=== PATIENT | female | born 1990 | race Caucasian/White ===

== ENCOUNTER 2018-05-19 16:40 | Outpatient (REF) | payer MEDICAID, SELFPAY ==
[2018-05-21 15:38] LABS: GC Result Negative; Specimen Description URINE
[2018-05-24 09:15] LABS: Chlamydia Result Positive
== END 2018-05-19 17:00 ==
LOC: NCHCN 16:40
PROVIDERS: PCP Nurse Practitioner Family; Visit Provider Registered Nurse
DX: F41.8 Other specified anxiety disorders (principal); R35.0 Frequency of micturition; N93.0 Postcoital and contact bleeding
CPT/HCPCS: 87491; 87591

== ENCOUNTER 2018-05-28 15:16 | Outpatient (REF) | payer MEDICAID, SELFPAY ==
[2018-05-31 09:26] LABS: Hepatitis C Ab w Rflx HCV PCR Negative (NEGAT)
[2018-05-31 09:57] LABS: Hepatitis B Surface Ag Negative (NEGAT)
[2018-05-31 11:09] LABS: Hep B Core Antibody Negative (NEGAT)
[2018-05-31 11:13] LABS: HIV-1/2 Ag & Ab Screen Negative (NEGAT)
[2018-05-31 11:14] LABS: HBs Antibody, Quant <3.1 mIU/mL; Hepatitis B Surface Ab Negative
[2018-05-31 12:22] LABS: Syphilis Serology (RPR) Negative (Negative)
== END 2018-05-28 15:36 ==
LOC: NCHCN 15:16
PROVIDERS: PCP Nurse Practitioner Family; Visit Provider Registered Nurse
DX: Z11.3 Encounter for screening for infections with a predominantly sexual mode of transmission (principal); Z11.59 Encounter for screening for other viral diseases; Z11.4 Encounter for screening for human immunodeficiency virus [HIV]
CPT/HCPCS: 86704; 86706; 86803; 87340; 87389; 86592

== ENCOUNTER 2018-07-21 09:42 | Outpatient (REF) | payer MEDICAID, SELFPAY ==
[2018-07-23 13:51] LABS: Chlamydia Result Negative; GC Result Negative; Specimen Description URINE
== END 2018-07-21 10:02 ==
LOC: NCHCN 09:42
PROVIDERS: PCP Nurse Practitioner Family; Visit Provider Registered Nurse
DX: Z86.19 Personal history of other infectious and parasitic diseases (principal); Z11.3 Encounter for screening for infections with a predominantly sexual mode of transmission
CPT/HCPCS: 87491; 87591

== ENCOUNTER 2018-11-12 10:19 | Outpatient (REF) | payer MEDICAID, SELFPAY ==
[2018-11-12 20:51] LABS: HCT 43.5 % (36.0-46.0); HGB 14.8 g/dL (12.0-15.5); Mean Corpuscular Hemoglobin 31.9 pg (27.0-33.0); Mean Corpuscular Volume 93.8 fL (80-95); Mean Platelet Volume 11.3 fL (8.0-11.0); Platelet Count 154 x1000/uL (130-400); RBC 4.64 m/cumm (4.00-5.20); RBC Distribution Width 12.6 % (11.7-14.6); White Blood Cell Count 3.95 k/cumm (4.4-10.8)
[2018-11-12 20:53] LABS: ALT 23 U/L (12-78); AST 18 U/L (15-37); Albumin 4.4 g/dL (3.4-5.0); Alkaline Phosphatase 62 U/L (46-116); Anion Gap 10.1 mmol/L (3-11); BUN 14 mg/dL (7-18); Bilirubin, Total 2.1 mg/dL (0.2-1.0); CO2 28.9 mmol/L (21.0-32.0); CREATININE 0.88 mg/dL (0.55-1.02); Calcium 9.7 mg/dL (8.5-10.1); Chloride 100 mmol/L (98-107); Glucose 73 mg/dL (70-100); Magnesium 1.9 mg/dL (1.8-2.4); Potassium 4.2 mmol/L (3.5-5.1); Sodium 139 mmol/L (136-145); TSH 2.29 uIU/mL (0.358-3.74); Total Protein 8.3 g/dL (6.4-8.2); Vitamin B12 418 pg/mL (193-986)
== END 2018-11-12 10:39 ==
LOC: NCHCN 10:19
PROVIDERS: PCP Nurse Practitioner Family; Visit Provider Registered Nurse
DX: F41.8 Other specified anxiety disorders (principal)
CPT/HCPCS: 80053; 85027; 82607; 83735; 84443

== ENCOUNTER 2018-11-29 19:27 | Outpatient (REF) | payer MEDICAID, SELFPAY ==
[2018-11-29 21:08] LABS: ALT 16 U/L (12-78); AST 15 U/L (15-37); Albumin 3.9 g/dL (3.4-5.0); Alkaline Phosphatase 47 U/L (46-116); Bilirubin, Total 0.9 mg/dL (0.2-1.0); Total Protein 7.3 g/dL (6.4-8.2)
== END 2018-11-29 19:47 ==
LOC: NCHCN 19:27
PROVIDERS: PCP Nurse Practitioner Family; Visit Provider Registered Nurse
DX: E80.6 Other disorders of bilirubin metabolism (principal)
CPT/HCPCS: 80076

== ENCOUNTER 2019-03-09 18:29 | Outpatient (REF) | payer MEDICAID, SELFPAY ==
[2019-03-11 14:13] LABS: Chlamydia Result Negative; GC Result Negative; Specimen Description VAGINAL
== END 2019-03-09 18:49 ==
LOC: NCHCN 18:29
PROVIDERS: PCP Nurse Practitioner Family; Visit Provider Nurse Practitioner Family
DX: Z11.3 Encounter for screening for infections with a predominantly sexual mode of transmission (principal); Z86.19 Personal history of other infectious and parasitic diseases
CPT/HCPCS: 87491; 87591

== ENCOUNTER 2020-11-14 09:21 | Outpatient (REF) | payer MEDICAID, SELFPAY ==
[2020-11-15 14:02] LABS: Chlamydia Result Negative (Negative); GC Result Negative (Negative)
== END 2020-11-14 09:22 | disposition home or self-care (01) ==
LOC: NCHCN 09:21
PROVIDERS: PCP Nurse Practitioner Family; Visit Provider Registered Nurse
DX: Z86.19 Personal history of other infectious and parasitic diseases (principal)
CPT/HCPCS: 87491; 87591

== ENCOUNTER 2021-06-06 09:42 | Outpatient (REF) | payer MEDICAID, SELFPAY ==
--- NOTE | 2021-06-06 08:30 | PAPFT_PTH ---
PATIENT: Jeny Vela LOC: [facility]#:[id number] AGE/SX: 30/F ROOM: RE06/06/[address]: Darlene Alves : 1990 BED: DIS: 06/06/2021 SPEC #: [id number] RECD: 06/06/21 18:28 STATUS: PAUL REAngela #: [id number] JUAN: 06/06/21 08:[address]: Darlene Alves DEPT: [facility] Cytology RECD BY: Aleena Aguilar ENTERED: 06/06/21 18:28 SP TYPE: PAPFT OTHR DR: Lorrie Cuba Tissues: 1 - CX/ENDOCX FOR PAP SMEARS Procedures: PAP THIN PREP/UVM Screening Comments: [id number]
[2021-06-07 10:06] LABS: HIV-1/2 Ag & Ab Screen Negative (Negative)
[2021-06-07 16:01] LABS: Chlamydia Result Negative (Negative); GC Result Negative (Negative)
== END 2021-06-06 09:43 | disposition home or self-care (01) ==
LOC: NCHCN 09:42
PROVIDERS: PCP Nurse Practitioner Family; Visit Provider Registered Nurse
DX: Z12.4 Encounter for screening for malignant neoplasm of cervix (principal); Z11.3 Encounter for screening for infections with a predominantly sexual mode of transmission; Z11.4 Encounter for screening for human immunodeficiency virus [HIV]; Z86.19 Personal history of other infectious and parasitic diseases
CPT/HCPCS: 87389; 87491; 87591; 88142

== ENCOUNTER 2022-05-16 17:13 | Outpatient (REF) | payer MEDICAID, SELFPAY ==
--- OUTSIDE RECORDS SUMMARY | 2022-05-16 17:15 | XMS_ITS | Encounter Summary ---
:1990 Author Organization [facility] Address [address] [place] [address] Care Team Providers Name Role Phone Unavailable Primary Care Provider Unavailable Encounter Details Date Type Department Care Team Description 06/06/2021 Lab Requisition [facility] Outr Resulting Lab, Pathology & Laboratory Provider [facility] [address] [place] [address] Social History Tobacco Use Types Packs/Day Years Used Date Never Assessed Sex Assigned at Date Recorded Not on file documented as of this encounter Plan of Treatment Not on filedocumented as of this encounter Procedures Procedure Name Priority Date/Time Associated Comments Diagnosis CHLAMYDIA/N. Routine 06/06/2021 8:20 Results for this GONORRHOEAE AMPLIFIED EDT proced ure are in RNA the results section. documented in this encounter Results CHLAMYDIA/N. GONORRHOEAE AMPLIFIED RNA (06/06/2021 8:20 EDT) Pathologist Sig nature Gonococcus Result Negative Negative [facility] Chlamydia Result Negative Negative [facility] Specimen Urine - Urine, Initial Void Narrative [facility] - 06/07/2021 15:56 EDT A first catch urine specimen is acceptab le for detection of Gonorrhea and Chlamydia, but might detect up to 10% fewer infecti ons when compared with vaginal and endocervical swab samples. Performing Organization Address City/State/ZIP Code Phon e Number [facility] [address] [place] [address] SERVICES documented in this encounter Visit Diagnoses Not on filedocumented in this encounter
--- OUTSIDE RECORDS SUMMARY | 2022-05-16 17:15 | XMS_ITS | Encounter Summary ---
:1990 Author Organization [facility] Address [address] [place] [address] Care Team Providers Name Role Phone Unavailable Primary Care Provider Unavailable Encounter Details Date Type Department Care Team Description 06/06/2021 Lab Requisition [facility] Outr Resulting Lab, Pathology & Laboratory Provider [facility] [address] [place] [address] Social History Tobacco Use Types Packs/Day Years Used Date Never Assessed Sex Assigned at Date Recorded Not on file documented as of this encounter Plan of Treatment Not on filedocumented as of this encounter Procedures Procedure Name Priority Date/Time Associated Comments Diagnosis HIV 1/2 ANTIGEN AND Routine 06/06/2021 8:20 EDT R esults for this ANTIBODY, 4TH procedure are in GENERATION the results section. documented in this encounter Results HIV 1/2 ANTIGEN AND ANTIBODY, 4TH GENERATION (06/06/2021 8:20 EDT) HIV 1 and 2 Negative Negative [facility] Antibody/p24 Comment: LABORATORY Antigen, 4th If acute HIV-1 infection is suspected in a high risk ??patient, submit plasma specimen for HIV-1 RNA quantitation test. SERV ICES Generation Fourth Generation assay performed on the Siemens Skybox Imaginga ur. Specimen Blood - Venous blood (substance) Performing Organization Address City/State/ZIP Code Phon e Number [facility] [address] [place] [address] SERVICES documented in this encounter Visit Diagnoses Not on filedocumented in this encounter
--- OUTSIDE RECORDS SUMMARY | 2022-05-16 17:15 | XMS_ITS | Encounter Summary ---
:1990 Author Organization [facility] Address [address] [place] [address] Care Team Providers Name Role Phone Unavailable Primary Care Provider Unavailable Encounter Details Date Type Department Care Team Description 06/07/2021 Lab Requisition [facility] Akash Alves for other Pathology & Darlene Pina APRN general examination Laboratory Medicine - [address] [place], [place] [address] [facility] [address] [place] [address] Social History Tobacco Use Types Packs/Day Years Used Date Never Assessed Sex Assigned at Date Recorded Not on file documented as of this encounter Plan of Treatment Not on filedocumented as of this encounter Procedures Procedure Name Priority Date/Time Associated Diagnosis Comme nts PAP TEST Today 06/06/2021 8:30 EDT Encounter for other R esults for this general examination procedur e are in the results section. documented in this encounter Results PAP TEST (06/06/2021 8:30 EDT) Specimens A. Cervix and/or [facility] Endocervix , ThinPrep CENTER Imaging System with LABORATORY Manual Evaluation SERVICES Specimen Adequacy Satisfactory for [facility] Evaluation - CENTER transformation zone LABORATORY component present SERVICES General Negative for [facility] intraepithelial [place] lesion or malignancy LABORATORY SERVICES Attestation . [facility] CENTER signed by GRUPO Abdul SCT(A SCP) SERVICES on 06/10/2021 at 1242 Clinical [address] See below [facility] Performing Lab [facility] Scanned Images [facility] Specimen Pap Test - Cervix and/or Endocervix Performing Organization Address City/State/ZIP Code Phon e Number [facility] [address] [place] [address] SERVICES documented in this encounter Visit Diagnoses Diagnosis Encounter for other general examination documented in this encounter
--- OUTSIDE RECORDS SUMMARY | 2022-05-16 17:15 | XMS_ITS | Clinical Summary ---
:1990 Author Organization [facility] Address [address] [place] [address] Care Team Providers Name Role Phone Unavailable Primary Care Provider Unavailable Social History Tobacco Use Types Packs/Day Years Used Date Never Assessed Sex Assigned at Date Recorded Not on file Plan of Treatment Health Maintenance Due Date Last Done Comments Hepatitis C Screen 1990 COVID-19 Vaccine (1) 2004
--- OUTSIDE RECORDS SUMMARY | 2022-05-16 17:15 | XMS_ITS | Encounter Summary ---
:1990 Author Organization [facility] Address [address] [place] [address] Care Team Providers Name Role Phone Unavailable Primary Care Provider Unavailable Encounter Details Date Type Department Care Team Description 10/28/2012 Historical Results Only [facility] - Ida Villarreal, [facility] - [facility] [place] [address] [address] Social History Tobacco Use Types Packs/Day Years Used Date Never Assessed Sex Assigned at Date Recorded Not on file documented as of this encounter Plan of Treatment Not on filedocumented as of this encounter Procedures Procedure Name Priority Date/Time Associated Diagnosis Comme nts PAP TEST Routine 10/28/2012 Results for thi s procedure are in the resu lts section. documented in this encounter Results PAP TEST (10/28/2012) Specimen Narrative [facility] - 013 16:27 EDT Name: JENY VELA ? : [birth year] ?Age/Sex: 29/F ?Unit#: [id number] ? Loc: AGO ? Status: REG POV ?? Reg Date: 10/28/12 ? Pt.Phone Number : ? Specimen: [id number] ?STA TUS: SOUT ?Spec Date:10/28/12 ? Physician Copies: ?Carl Villarreal MD ? Tissues: ? Cervical/Endo Pap ?NONE,NONE ? CPT: 04451 ?? Units: ??1 ? CYTOLOGY DIAGNOSIS SPECIMEN ADEQUACY: ?Satisfactory for evaluation. Transformation zone component ABSENT. GENERAL CATEGORIZATION: ?Epithelial Cell Abnormality. DESCRIPTIVE DIAGNOSIS: ??Squamous cell A bnormality - ??Atypical squamous cells - undetermine d significance (ASC-US). RECOMMENDATIONS/COMMENTS: ??Recommend fo haliewing the 2006 Consensus Guidelines for the Management of ??Women with Cervical Cyto logic Abnormalities. ??Management algorithms have been distributed and are also available online at www.ASCCP.org/consensus.shtml. ?HPV DNA RESULTS ?? 10/28/12 1514 HPV DNA RESULT ??NEG ? Negative for HP V types 16, 18, 31, 33, 35, 39, 45, 51, 52, ? 56, 58, 59, 66, 68. ? Method: Cervist a HPV HR (High Risk) DNA test. ORDER QUERIES: LMP: 07/28/12- ?Preg nant? Y Post ? N ??PREVIOUS ATYPICAL: N BCP/HRT? N Rad Rx? N IUD? N ??PAP PLUS HPV? N ??REFLEX TO HR-HPV IF ASCUS ?? REFLEX TO HPV 16/18 IF HPV POS/PAP NEG ?? HPV REGARDLESS?RFLX HPV IF LSIL ?? IF ASCUS DO HPV? Y Signed ____(signature on file)____ Donna Arnett M.D. 11/03/12 By the signature above, the attending ph ysician certifies that he/she has personally conducted a gross and/or microscopic exa mination of the described specimens and rendered or confirmed the above diagnosi s. Test Performed by [facility], [address] [place] [address] Latex Spooler: Donna Navarro MD PHD Performing Organization Address City/State/ZIP Code Phon e Number [facility] [address] [place] [address] LAB documented in this encounter Visit Diagnoses Not on filedocumented in this encounter
== END 2022-05-16 17:14 | disposition home or self-care (01) ==
LOC: LBN 17:13
PROVIDERS: PCP Nurse Practitioner Family; Visit Provider Physician Assistant Medical
DX: N89.8 Other specified noninflammatory disorders of vagina (principal)
CPT/HCPCS: 87480; 87510; 87660

== ENCOUNTER 2024-01-07 15:19 | Outpatient (REF) | payer MEDICAID, SELFPAY ==
[2024-01-07 23:33] LABS: Hepatitis C Ab w Rflx HCV PCR Negative (Negative)
[2024-01-07 23:48] LABS: HIV-1/2 Ag & Ab Screen Negative (Negative)
[2024-01-08 12:06] LABS: Syphilis Serology (RPR) Negative (Negative)
[2024-01-08 15:03] LABS: Chlamydia Result Negative (Negative); GC Result Negative (Negative)
== END 2024-01-07 15:20 | disposition home or self-care (01) ==
LOC: LBN 15:19
PROVIDERS: PCP Nurse Practitioner Family; Visit Provider Physician Assistant Medical
DX: N89.8 Other specified noninflammatory disorders of vagina (principal); A64 Unspecified sexually transmitted disease
CPT/HCPCS: 86803; 87389; 87491; 87591; 86592; 87480; 87510; 87660

== ENCOUNTER 2024-02-12 20:13 | Outpatient (REF) | payer MEDICAID, SELFPAY | END 2024-02-12 20:14 | disposition home or self-care (01) | LOC: LBN 20:13 | PROVIDERS: PCP Nurse Practitioner Family; Visit Provider Physician Assistant Medical | DX: N76.0 Acute vaginitis (principal); N89.8 Other specified noninflammatory disorders of vagina | CPT/HCPCS: 87480; 87510; 87660 ==

== ENCOUNTER 2024-06-15 14:48 | Outpatient (REF) | payer MEDICAID, SELFPAY ==
--- NOTE | 2024-06-15 13:40 | PAPFT_PTH ---
PATIENT: Jeny Vlea LOC: [facility]#:[id number] AGE/SX: 33/F ROOM: RE06/15/[address]: ASIF: 1990 BED: DIS: 06/15/2024 SPEC #: [id number] RECD: 06/16/24 12:54 STATUS: PAUL GOMEZ #: [id number] JUAN: 06/15/24 13:[address]: Bhakti Jean-Baptiste DEPT: [facility] Cytology RECD BY: Aleena Aguilar ENTERED: 06/16/24 12:54 SP TYPE: PAPFT OTHR DR: Lorrie Cuba Tissues: 1 - CX/ENDOCX FOR PAP SMEARS Procedures: PAP THIN PREP/UVM Screening HPV DNA PROBE Comments: [id number] (HPV 16 & 18/45)
--- OUTSIDE RECORDS SUMMARY | 2024-06-15 14:52 | XMS_ITS | Encounter Summary ---
Author Organization [facility] Address [address] [place] [address] Care Team Providers Care Nailhead Setter Name Role Phone Samantha, [facility] Primary Care Provider [phone] Unknown, Provider MD Unavailable Unavailable Encounter Details Date Type Department Care Team (Late st Contact Info) Description 03/31/2024 Lab Requisition [facility] Pathology & Laboratory Medicine - [address] [address] [phone] Outr Resulting Lab, Provider Social History Tobacco Use Types Packs/Day Years Used Date Smoking Tobacco: Never Assessed Sex and Gender Information Value Date Recorded Sex Assigned at Not on file Gender Identity Female 06/15/2023 10:28 EST Sexual Orientation Not on file documented as of this encounter Plan of Treatment Not on file documented as of this encounter Procedures Procedure Name Priority Date/Time Associated Diagnosis Comments VAGINAL CTGC AND VAGINITIS/VAGINOSIS MOLECULAR DETECTION Routine 03/31/2024 16:29 EDT documented in this encounter Results * VAGINAL CTGC AND VAGINITIS/VAGINOSIS MOLECULAR DETECTION (03/31/2024 16:29 EDT) Stephanie glabrata Negative Negative 04/02/2024 16:49 EDT [facility] Trichomonas Vaginalis Negative Negative 04/02/2024 16:49 EDT [facility] BV (Bacterial vaginosis) Negative Negative 04/02/2024 16:49 EDT [facility] Neisseria gonorrhoeae Result Negative Negative 04/02/2024 16:49 EDT [facility] Chlamydia trachomatis Result Negative Negative 04/02/2024 16:49 EDT [facility] Stephanie Species Negative Negative 16:49 EDT [facility] Swab VAGINAL STRUCTURE / Unknown 03/31/2024 16:29 EDT 04/01/2024 22:08 EDT Provider Outr Resulting Lab MICROBIOLOGY - GENERAL ORDERABLES Performing Organization Address City/State/[facility] Co de Phone Number [facility] [address] [place] [address] documented in this encounter Visit Diagnoses Not on filedocumented in this encounter Care Teams Nailhead Setter Relationship Specialty Start Date End Date [facility] [address] [place] [address] PCP - General 06/15/23 Unknown, Provider, [address] [place] [address] 06/15/23 documented as of this encounter
--- OUTSIDE RECORDS SUMMARY | 2024-06-15 14:52 | XMS_ITS | Encounter Summary ---
Author Organization [facility] Address [address] [place] [address] Care Team Providers Care Station Mechanic Helper Name Role Phone Unknown, Provider Primary Care Provider Unava ilable Encounter Details Date Type Department Care Team (Late st Contact Info) Description 10/28/2012 Historical Results Only [facility] - [address] [place] [address] [place] [address] Carl Villarreal MD Social History Tobacco Use Types Packs/Day Years Used Date Smoking Tobacco: Never Assessed Sex and Gender Information Value Date Recorded Sex Assigned at Not on file Gender Identity Female 06/15/2023 10:28 EST Sexual Orientation Not on file documented as of this encounter Plan of Treatment Not on file documented as of this encounter Procedures Procedure Name Priority Date/Time Associated Diagnosis Comments PAP TEST Routine 10/28/2012 documented in this encounter Results * PAP TEST (10/28/2012) 10/28/2012 10/29/2012 9:3 9 EDT [facility] - 11/03/2012 16:27 EDT ----- ------- Name: JENY BARROW ? : [birth year] ?Age/Sex: 29/F ?Unit#: [id number] ? Loc: AGO ? Status: REG POV ?? Reg Date: 10/28/12 ? Pt.Phone Number: ? ----- ------- Specimen: [id number] ?STATUS: SOUT ?Spec Date:10/28/12 ? Physician Copies: ?Carl Villarreal MD ? Tissues: ? Cervical/Endo Pap ?NONE,NONE ? CPT: 80458 ?? Units: ??1 ----- ------- ? CYTOLOGY DIAGNOSIS SPECIMEN ADEQUACY: ?Satisfactory for evaluation. Transformation zone component ABSENT. GENERAL CATEGORIZATION: ?Epithelial Cell Abnormality. DESCRIPTIVE DIAGNOSIS: ??Squamous cell Abnormality - ??Atypical squamous cells - undetermined significance (ASC-US). RECOMMENDATIONS/COMMENTS: ??Recommend following the 2006 Consensus Guidelines for the Management of ??Women with Cervical Cytologic Abnormalities. ??Management algorithms have been distributed and are also available online at www.ASCCP.org/consensus.shtml. ----- ------- ?HPV DNA RESULTS ?? 10/28/12 1514 HPV DNA RESULT ??NEG ? Negative for HPV types 16, 18, 31, 33, 35, 39, 45, 51, 52, ? 56, 58, 59, 66, 68. ? Method: Cervista HPV HR (High Risk) DNA test. ----- ------- ORDER QUERIES: LMP: 07/28/12- ? Y Post ? N ??PREVIOUS ATYPICAL: N BCP/HRT? N Rad Rx? N IUD? N ??PAP PLUS HPV? N ??REFLEX TO HR-HPV IF ASCUS ?? REFLEX TO HPV 16/18 IF HPV POS/PAP NEG ?? HPV REGARDLESS?RFLX HPV IF LSIL ?? IF ASCUS DO HPV? Y Signed ____(signature on file)____ Donna Navarro M.D. 11/03/12 By the signature above, the attending physician certifies that he/she has personally conducted a gross and/or microscopic examination of the described specimens and rendered or confirmed the above diagnosis. Test Performed by [facility], [address] [place] [address] Business Systems Advisor: Donna Navarro MD PHD ----- ------- Carl Villarreal MD PATHOLOGY ORDERABLES [facility] documented in this encounter Visit Diagnoses Not on filedocumented in this encounter Care Teams Station Mechanic Helper Relationship Specialty Start Date End Date Unknown, Provider, PCP - General 01/28/18 06/14/23 documented as of this encounter
--- OUTSIDE RECORDS SUMMARY | 2024-06-15 14:52 | XMS_ITS | Encounter Summary ---
Author Organization [facility] Address [address] [place] [address] Care Team Providers Care Contracts Intern Name Role Phone Unknown, Provider Primary Care Provider Unava ilable Encounter Details Date Type Department Care Team (Late st Contact Info) Description 01/26/2018 Results Only [facility] [phone] Lashae Alves, UNDERCAR SPECIALIST [address] [place] [address] Social History Tobacco Use Types Packs/Day Years Used Date Smoking Tobacco: Never Assessed Sex and Gender Information Value Date Recorded Sex Assigned at Not on file Gender Identity Female 06/15/2023 10:28 EST Sexual Orientation Not on file documented as of this encounter Plan of Treatment Not on file documented as of this encounter Procedures Procedure Name Priority Date/Time Associated Diagnosis Comments PAP TEST- RESULT ONLY Routine 01/26/2018 0:00 EDT documented in this encounter Results * PAP TEST- RESULT ONLY (01/26/2018 0:00 EDT) Pathology Report: CYTOPATHOLOGY REPORT Reports generated via electronic interface contain original data; however they are lacking the format of the original report. Caution should be taken when reading/interpreti ng unformatted reports. Name: ? JENY VELA ? Accession #: ? [id number] : ? 1990 (Age: 27) ??F ?Collect Date: ? 01/26/2018 Location: ? [facility] ? Receive Date: ? 01/28/2018 Provider: ?LASHAE ALVES UNDERCAR SPECIALIST Copy to: ? Specimen/Source: ?Pap Test, Cervix, ThinPrep Imaging System with manual evaluation Last Menstrual Period: ? 01/17/2018 Hormonal/Contracep tive Status: ? None Other: ? Additional clinical information: Z12.4 ? SPECIMEN ADEQUACY ? Satisfactory for Evaluation - transformation zone component present GENERAL CATEGORIZATION ? Negative for Intraepithelial Lesion or Malignancy INTERPRETATION ? Fungal organisms present morphologically consistent with Stephanie species. Shift in comfort present suggestive of bacterial vaginosis. ? Document reviewed and electronically signed by: ? IGGY Cervantes(ASCP) ? Report Date: ??02/04/2018 16:12 End of Report [facility] 01/26/2018 01/28/2018 Lashae Alves UNDERCAR SPECIALIST PATHOLOGY ORDERA [facility] [address] [place] [address] documented in this encounter Visit Diagnoses Not on filedocumented in this encounter Care Teams Contracts Intern Relationship Specialty Start Date End Date Unknown, Provider, PCP - General 01/28/18 06/14/23 documented as of this encounter
--- OUTSIDE RECORDS SUMMARY | 2024-06-15 14:52 | XMS_ITS | Continuity of Care Document ---
Author Organization [facility], [facility] Address [address] [place] [address] Care Team Providers Care Shirt Sorter Name Role Phone [facility] Dentist [employer] Draftsperson Assessment Encounter Date Assessment Date Assessment LastModified by Organization Details LastModified Time 04/27/2024 04/27/2024 The total time devoted to today's encounter, including both the odwr-kd-whjx time with the patient and/or family/caregi alice and uyo-fbeb-wh-f alisha time I personally spent is 20 minutes in visit, 5 minutes prep, 5 minutes charting; total 30 minutes. [email or web address] Not available 04/27/2024 17:43:11 Plan of Treatment Reminders Order Date Submit Date Provider Last Modified By Organization Details Last Modified Time Details Appointments Annual Wellness Exam 40 2023 01:00P M DONTAE MEHUL Not available Not available Not available Lab None recorded. Referral None recorded. Procedures None recorded. Surgeries None recorded. Imaging None recorded. Medication Orders valacyclo vir 1 gram tablet 2023 024 [id number] [address] [place], [address], 04/27/2024 17:34:31 penciclov ir 1 % topical cream 2023 024 [id number], [address] [place], [address], 04/27/2024 17:34:30 Patient TargetsNo targets recorded. Patient InstructionsNo instructions recorded. Reason for Referral None Reported. Problems Name Problem SNOMED Code Status Onset Date Resolution Date Notes Provider Name and Address Organization Details Recorded Time Depressi ve disorder 82919970 Active 2023 DONTAE CARVER, DATA ENTRY [address], [place], [address] , [facility] 4 14:37:34 Acute vaginiti s 85688351 Completed 201503/09/2018 Problem Code: N76.0; Problem Code Type: ICD-10; Not Available [facility] 3 05:08:28 Amenorrh ea 25674236 Completed 201703/22/2018 02/20/20 18 - Comments only - Jhon Arora M.D. - UPT today neg, but did have + UPT at home. advised to repeat first urine test if no period in next few days. counsele d re: options if . enc'd her to return if she is preg and wants to further discuss options. Problem Code: N91.2; Problem Code Type: ICD-10; Not Available [facility] 3 05:08:28 Puncture wound of right foot [id number] Completed 201702/26/2018 02/20/20 18 - Comments only - Jhon Arora M.D. - Tdap given today. However, is outside window in which this would be preventi ve for this injury .She doesn't currentl y have signs of tetanus, but rev'd sx and asked her to call w/ any concerns . Problem Code: S91.331A ; Problem Code Type: ICD-10; Not Available [facility] 3 05:08:28 Candidia sis of vagina 68568250 Completed 201702/26/2018 02/20/20 18 - Comments only - Jhon Arora M.D. - Pap results revealed yeast organism s in add'n to shift in comfort suggesti ve of BV. she has been tx'd already for BV. advised tx w/ Monistat 7 - fluconaz ole discusse d, but since pregnanc y is possible and she's undecide d about what her choice would be around a pregnanc y, we elected not to tx w/ shoshana valencia. Problem Code: B37.3; Problem Code Type: ICD-10; Not Available [facility] 3 05:08:28 Postcoit al bleeding 59817047 Completed 201711/17/2018 05/19/20 18 - Comments only - MENDEL Silva APRN-BC - Reports postcoit al bleeding occurrin g on several occasion s, although history is somewhat vague and I was not able to discern exactly how many times this has occurred . The amount of bleeding can defer, and she does think that it is possibly related to upcoming menses. She does report some abdomina l cramping , which is new for her. In addition she has possible exposure to STDs, as her partner has had some addition al partners . She has had unprotec maynor sex, does not use control currentl y, with the exceptio n of condoms intermit tently. UPT is negative in office today. Vaginal exam reassuri ng, cervix is not friable, there is no mucopuru lent discharg e, no cervical motion tenderne ss or pelvic organ tenderne ss with bimanual exam. Will send CT/GC testing today. Lower index of suspicio n for PID given exam. With any recurren t abdomina l pain, continue d postcoit al bleeding , patient aware that she should follow-u p promptly . Problem Code: N93.0; Problem Code Type: ICD-10; Not Available [facility] 3 05:08:28 Anxiety 96704293 Active 201711/16/19 20 - Comments only - MENDEL Silva APRN-BC - -Has complete d initial intake with PMHNP in this office previous ly but did not follow up on that or on counseli ng. -Offered both to her again today. She declines , but will call back if she would like to pursue this. Problem Code: F41.8; Problem Code Type: ICD-10; Not Available [facility] 3 05:08:28 Venereal disease screenin g Completed 201705/28/2018 Problem Code: Z11.3; Problem Code Type: ICD-10; Not Available [facility] 3 05:08:29 Venereal disease screenin yordy Completed 201706/27/2018 Problem Code: Z11.3; Problem Code Type: ICD-10; Not Available [facility] 3 05:08:29 History of infectio us disease 339594302 Active 201707/21/20 18 - Comments only - Darlene sutton DIGITAL PRINTER OPERATOR, DATA ENTRY-BC - Repeat testing for chlamydi a today. Problem Code: Z86.19; Problem Code Type: ICD-10; Not Available [facility] 3 05:08:29 Low back pain 056069259 Completed 201709/15/2018 07/21/20 18 - Comments only - Darlene sutton DIGITAL PRINTER OPERATOR, DATA ENTRY-BC - Possible SI joint strain. Reviewed with patient that symptoms will likely resolve spontane ously. Provided instruct ions for simple stretchi ng exercise s. Supporti ve treatmen t: NSAIDs if needed for acute pain, heat and ice as tolerate d and helpful, core strength ening and gentle stretchi ng. Patient consider ing chiropra ctic care. Problem Code: M54.5; Problem Code Type: ICD-10; Not Available [facility] 3 05:08:29 Disorder of bilirubi n metaboli sm 45102950 Completed 201812/29/2018 12/05/19 19 - Comments only - Darlene sutton APRN, DATA ENTRY-BC - Recheck LFTs If elevated bilirubi n persists will order fraction ated bilirubi n. Reassura nce as she is quite anxious about this result. Problem Code: E80.6; Problem Code Type: ICD-10; Not Available [facility] 3 05:08:29 Oligomen orrhea 74272884 Completed 201803/23/2019 03/10/20 19 - Comments only - Sabina Toussaint APRN - Urine dip and pregnanc y test negative (except for blood). Chlamydi a and gonorrhe a cultures pending and we will inform her of results. Long discussi on about causes of pain with intercou rse, she denies coercion or abuse. We discusse lesley using external lubrican ts and taking more time. We discusse lesley variabil ity in cycles of menses and that her current light menses is not alarming . Ilia discussi on about contrace ption options and she is open LARC, Nexplano n, or pills, we also discusse lesley using condoms as the only option for STI preventi on if sexually active. Problem Code: N91.5; Problem Code Type: ICD-10; Not Available [facility] 3 05:08:29 Abdomina l pain 48984617 Completed 201803/23/2019 Problem Code: R10.9; Problem Code Type: ICD-10; Not Available [facility] 3 05:08:29 Dyspareu racheal 69284348 Active 2018 Problem Code: N94.10; Problem Code Type: ICD-10; Not Available [facility] 3 05:08:29 Dizzines s and giddines s 459368330 Completed 201912/14/2019 11/16/19 20 - Comments only - Darlene sutton APRN, DATA ENTRY-BC - With one episode of transien t chest pressure -Etiolog y unclear. Low index of cardiac given age, general health, and sx desripti on. -Suspect possibly related to anxiety - patient with hx of signific ant anxiety -She has had very light menses, and has had unprotec maynor sex - she will do UPT at home to double check on pregnanc y status. -She is comforta ble with monitori ng sx for now - gave strict instruct ions to call back with any recurren t sx. Problem Code: R42; Problem Code Type: ICD-10; Not Available [facility] 3 05:08:30 Contrace ption care educatio n Active 201911/16/19 20 - Comments only - Darlene sutton APRN, DATA ENTRY-BC - -UPT at home as above -Strongl y encourag ed consiste nt condom use. Partner is planning vasectom y Problem Code: Z30.09; Problem Code Type: ICD-10; Not Available [facility] 3 05:08:30 Oligomen orrhea 26367214 Active 201911/15/19 21 - Unchange d - SUSANA Silva APRN - At this time regulari ty of menses is monthly. Two instance s in one year of periods delayed by 2-3 weeks. No reports of symptoms consiste nt with ovarian cysts, fibroids , PCOS, or other concerni ng religious education teacher etiologi es. Provided reassura nce that it is within normal limits to have some fluctuat ions in cycle. -Due to reports of increase d urinary frequenc y U/A collecte d today, negative for signs of infectio n. STI self swab collecte d as partner may not be mutually monogamo us. - Multiple home UPTs negative . LMP 11/04. - Educated regardin g the importan ce of contrace ption if not wanting pregnanc y at this time. Discusse d cycle tracking with cervical mucous and basal body temperat ure if not interest ed in pursuing other avenues for contrace ption. - Discusse d potentia l for labwork: TSH, FSH, PL. Will track cycles for a few more months before ordering labwork. - Discusse d potentia l referral for religious education teacher if pt desires. - Due for PAP 01/2021 - F/u in January for Annual with PAP. Reach out to office if wishing to pursue religious education teacher referral . Problem Code: N91.5; Problem Code Type: ICD-10; Not Available [facility] 3 05:08:30 Herpesvi ral vesicula r dermatit is 385935201 Active 201912/05/19 20 - Comments only - SUSANA Silva APRN - -Rx for refill of valacycl ovir at patient request -She does not feel that frequenc y of sx justifie s daily tx. Problem Code: B00.1; Problem Code Type: ICD-10; Not Available [facility] 3 05:08:30 HIV screenin g Completed 202007/04/2021 Problem Code: Z11.4; Problem Code Type: ICD-10; Not Available [facility] 3 05:08:30 Adult health examinat ion Active 2020 Problem Code: Z00.00; Problem Code Type: ICD-10; Not Available [facility] 3 05:08:30 Left lower quadrant pain 932921063 Completed 202008/06/2021 Problem Code: R10.32; Problem Code Type: ICD-10; Not Available [facility] 3 05:08:30 History of gynecolo gical disorder 294365885 Active 2020 Problem Code: Z87.42; Problem Code Type: ICD-10; Not Available [facility] 3 05:08:31 Low back pain 650852926 Active 2020 Problem Code: M54.5; Problem Code Type: ICD-10; Not Available [facility] 3 05:08:31 Pain in right lower limb 213453215 Completed 202104/07/2022 Problem Code: M79.604; Problem Code Type: ICD-10; Not Available [facility] 3 05:08:31 Noninfla mmatory disorder of the vagina 16694235 Active 2021 Problem Code: N89.8; Problem Code Type: ICD-10; Not Available [facility] 3 05:08:31 Disorder of nasal sinus 4299039 Completed 201602/19/2018 Not Available [facility] 3 05:08:31 Acute pharyngi tis 340597211 Completed 201602/19/2018 Problem Code: J02.9; Problem Code Type: ICD-10; Not Available [facility] 3 05:08:31 Contrace ption care manageme nt Completed 200911/16/2019 Problem Code: Z30.9; Problem Code Type: ICD-10; Not Available [facility] 3 05:08:32 Uses contrace ption 63821514 Completed 200905/06/2023 Not Available [facility] 3 05:08:32 Exposure to communic able disease Completed 201911/14/2020 Problem Code: Z20.828; Problem Code Type: ICD-10; Not Available [facility] 3 05:08:32 Adult health examinat ion Completed 200911/14/2020 Problem Code: Z00.00; Problem Code Type: ICD-10; Not Available [facility] 3 05:08:32 Major depressi on, single episode 07919103 Completed 200905/19/2018 Problem Code: F32.9; Problem Code Type: ICD-10; Not Available [facility] 3 05:08:32 Increase d frequenc y of urinatio n 314578028 Completed 201711/16/2019 Problem Code: R35.0; Problem Code Type: ICD-10; Not Available [facility] 3 05:08:32 Internal hordeolu m 585103134 Completed 202205/17/2023 Problem Code: H00.029; Problem Code Type: ICD-10; Not Available [facility] 4 05:34:16 Sexually transmit maynor infectio us disease 7210970 Active 2023 RAINE SCHMITT PA-C [address], [facility] [address] [facility] 4 10:32:21 Vaginal discharg e 065998114 Active 2023 RAINE SCHMITT PA-C [address], [facility] [address] [facility] 4 10:33:01 Bacteria l vaginosi s 046956615 Active [address], [facility] [address] [facility] 4 10:35:01 Notes:*Problem Name: ?adhd V s. Depression *ICD-10 Codes: *Problem Status: inactive *Comments: *Note Date: 07/25/2010 Problem Notes None recorded. Medical Equipment None Reported. Allergies No known drug allergies Medications Name Sig Start Date Stop Date Status Note LastModified by Organization Details LastModified Time biotin 5 mg capsule 1 tab daily 03/26 completed Not Available Not Available Not Available valacyclovi r 1 gram tablet TAKE 2 TABLETS BY MOUTH AT THE ONSET OF HSV INFECTION FOLLOWED BY 1 TABLET TWICE DAILY FOR 3-5 DAYS active Not Available Not Available No t Available metronidazo le 500 mg tablet TAKE ONE TABLET BY MOUTH TWICE A DAY FOR 7 DAYS 04/27 completed Not Available Not Available Not Available penciclovir 1 % topical cream active Not Available Not Available Not Available Metrogel Vaginal 0.75 % (37.5 mg/5 gram) Insert nightly into vagina x 5 nights. 01/31 completed Not Available Not Available Not Available Pre-Christine tablet 1CAP daily 2011 active Not Available Not Available Not Avai lable erythromyci n 5 mg/gram (0.5 %) eye ointment Apply 1/2 inch into affected eye four times a day as needed 05/01 completed Not Available Not Available Not Available polymyxin B sulfate 10,000 unit-trimet hoprim 1 mg/mL eye drops INSTILL 1 DROP IN BOTH EYES EVERY 4 HOURS 03/31 completed Not Available Not Available Not Available hydroxyzine HCl 25 mg tablet 1-2 as needed for sleep or anxiety 2023 active Not Available Not Available Not Avai lable multivitami n capsule 01/26 completed Not Available Not Available Not Available naproxen 500 mg tablet 1 tablet by mouth twice a day 04/17 completed Not Available Not Available Not Available azithromyci n 500 mg tablet take 2 tabs by mouth once 06/01 completed Not Available Not Available Not Available Ortho Tri-Cyclen (28) 1 TAB QD 12/18 completed Not Available Not Available Not Available Multivitami ns 12/18 completed Not Available Not Available Not Available omega-3 fatty acids-fish oil 300 mg-1,000 mg capsule take 1 cap by mouth daily 11/08 completed Not Available Not Available Not Available Multivital 1 tab qd active Not Available Not Available Not Available Plan B One-Step UAD 12/18 completed Not Available Not Available Not Available Plus (calcium carbonate) 27 mg iron-1 mg tablet take one tab po QD 2011 active Not Available Not Available Not Brayan bradshaw Vitamin B12 1 qd 12/18 completed Not Available Not Available Not Available Vitals Date Recorded Body height Oxygen saturation Oxygen saturation in Arterial blood by Pulse oximetry Heart rate Body mass index (BMI) Body weight Body temperature Systolic blood pressure Diastolic blood pressure Provider Name and Address Organization Details Last Updated DateTime 4 158.75 cm 99 % 99 % 98 /min 22.9 kg/m2 42504.9 5 g 98.4 [degF] 126 mm[Hg] 72 mm[Hg] ANGELLA PEDRAZA RN [facility] 17:02:06 Social History Question Answer Notes LastModified by Organizat ion Details LastModified Time Tobacco Smoking Status Never Smoker NANDO Al[place], [facility] 01/07/2024 09:43:25 Date Of Most Recent SBINS 04/27/2024 Pt Declined To Fill Out SBINS, Or CSSR [email or web address] Information not available 04/27/2024 What Was The Date Of Your Most Recent Tobacco Screening? 06/15/2024 [email or web address] Information not available 06/15/2024 Has Tobacco Cessation Counseling Been Provided? Yes [email or web address] Information not available 01/07/2024 On What Date Was Tobacco Cessation Counseling Provided? 01/07/2024 [email or web address] Information not available 01/07/2024 Sex: Female Functional Status None recorded. Mental Status None recorded. Family History Nothing Reported Notes:*Problem: Mother: Hernique e : BIPOLAR DISORDER Father: Alive: ? ADD Sisters: 1:ANXIETY AND PANIC ATTACKS 1/2: SISTER PANIC ATTACKSBrothers: 2: STEP BROTHERS Children: None Family History of: Hypertension: No Hyperlipidemia: No Coronary heart disease: + PATERNAL Breast cancer: Yes + MATERNAL BREAST CA AGE 54 Colorectal cancer: No Prostate cancer: No Aunt with PA ?age 50 Medical History No medical history recorded. Gynecological HistoryNo gynecological history recorded. Obstetrics History GPAL:G 0 P 0 0 0 0 Immunizations Vaccine Type Date Status Provider Name and Address Organization Details Recorded Time MMR 11/20/1998 completed Not Available [facility] 05:[facility]:22 MMR 04/02/1998 completed Not Available [facility] 05:37:23 DTaP, unspecified formulation 08/20/1993 completed Not Available [facility] 06/19/2023 05:37:23 DTaP, unspecified formulation 02/12/1993 completed Not Available [facility] 06/19/2023 05:37:23 DTaP, unspecified formulation 04/03/1995 completed Not Available [facility] 06/19/2023 05:37:23 DTaP, unspecified formulation 06/18/1993 completed Not Available [facility] 06/19/2023 05:37:23 Tdap 02/19/2018 completed Not Available [facility] 05:37:23 HPV, unspecified formulation 09/17/2010 completed Not Available [facility] 06/19/2023 05:37:23 HPV, unspecified formulation 03/05/2007 completed Not Available [facility] 06/19/2023 05:37:23 HPV, unspecified formulation 07/10/2010 completed Not Available [facility] 06/19/2023 05:37:23 Td(adult) unspecified formulation 12/09/2004 completed Not Available [facility] 06/19/2023 05:37:24 Hib, unspecified formulation 08/20/1993 completed Not Available [facility] 06/19/2023 05:37:24 Hib, unspecified formulation 02/12/1993 completed Not Available [facility] 06/19/2023 05:37:24 Hib, unspecified formulation 04/02/1995 completed Not Available [facility] 06/19/2023 05:37:24 Hib, unspecified formulation 06/18/1993 completed Not Available [facility] 06/19/2023 05:37:24 Hep B, unspecified formulation 08/20/1993 completed Not Available [facility] 06/19/2023 05:37:24 Hep B, unspecified formulation 04/02/1995 completed Not Available [facility] 06/19/2023 05:37:24 Hep B, unspecified formulation 06/18/1993 completed Not Available [facility] 06/19/2023 05:37:24 influenza, unspecified formulation 07/10/2010 completed Not Available [facility] 06/19/2023 05:37:24 polio, unspecified formulation 08/24/1997 completed Not Available [facility] 06/19/2023 05:37:24 polio, unspecified formulation 02/12/1993 completed Not Available [facility] 06/19/2023 05:37:25 polio, unspecified formulation 04/02/1995 completed Not Available [facility] 06/19/2023 05:37:25 polio, unspecified formulation 06/18/1993 completed Not Available [facility] 06/19/2023 05:37:25 Past Encounters Encounter ID Performer Location Encounter Start Date Encounter Closed Date Diagnosis/Indication Diagnosis SNOMED-CT Code Diagnosis ICD10 Code [id number] Dominique Bella PA-C [facility] [address] [address] 03/31/2024 16:05:20 03/31/2024 16:39:03 Vaginitis 89443055 N76.0 [id number] DONTAE CARVER, [address] [address] 04/27/2024 16:51:01 04/27/2024 17:38:12 Herpesviral vesicular dermatitis 408673313 B00.1 Bacterial vaginosis 4197 28144 N76.0 Health Concerns Section Related Observation LastModified by Organization Detai ls LastModified Time None Recorded Concern Status LastModified by Organization Details LastModified Time None Recorded Payers Encounter Date Sequence Insurance Name Policy Number Policy Perez Covered Member ID Perez Member ID Guarantor Name 04/27/2024 1 [facility] [facility] (MEDICAID) Jeny Vela [id number] Jeny Vela Notes Date Note Type Note Provider Name and Address Organization Details Recorded Time 04/27/2024 text/html HPI Notes: The patient, Jeny Vela, presents for a refill and to discuss concerns about bacterial vaginosis (BV) and cold sores. She reports having been treated for BV by [facility], but the test results came back negative. The patient mentions that the medication cleared up the symptoms, which were ongoing. She denies being on control and has had the same partner for a long time. She has not taken any antibiotics prior to the BV treatment. Jeny also reports experiencing bad-smelling sweat and is concerned about an underlying issue. She does not take a probiotic but consumes fermented foods like miso, kimchi, apple cider vinegar, and kombucha. She inquires about when to be alarmed if BV symptoms return and mentions having a wellness visit scheduled in June. 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 She attributes the outbreaks to stress and traumatic events in her life. Jeny requests a refill for her medication and discusses the possibility of taking a maintenance dose daily to suppress outbreaks. She has experienced several outbreaks in the past month and a half. Lastly, Jeny inquires about HPV testing and whether it could be causing her cold sores. She has been tested for other STDs, which came back negative. DONTAE CARVER, DATA ENTRY [address], [place], [address], [facility]. 04/27/2024 17:43:22 OBGyn Episode No OBEpisode recorded.
--- OUTSIDE RECORDS SUMMARY | 2024-06-15 14:52 | XMS_ITS | Encounter Summary ---
Author Organization [facility] Address [address] [place] [address] Care Team Providers Care Screw Machine Hand Name Role [facility] Care Provider [phone] [phone] Unknown, Provider MD Unavailable Unavailable Reason for Visit * Reason Comments Eye Pain Encounter Details Date Type Department Care Team (Late st Contact Info) Description 06/15/2023 10:30 EST [facility] [address] [place] [address] [id number] Elvia Molina PA-C [address] [facility] [address] [place] [address] Acute bacterial conjunctivitis of both eyes (Primary Dx) Social History Tobacco Use Types Packs/Day Years Used Date Smoking Tobacco: Never Assessed Sex and Gender Information Value Date Recorded Sex Assigned at Not on file Gender Identity Female 06/15/2023 10:28 EST Sexual Orientation Not on file documented as of this encounter Last Filed Vital Signs Vital Sign Reading Time Taken Comments Blood Pressure 152/75 06/15/2023 1056 EST Pulse 78 06/15/2023 1056 EST Temperature 36.5 ??C (97.7 ??F) 06/15/2023 1056 EST Respiratory Rate 18 06/15/2023 1056 EST Oxygen Saturation 100% 06/15/2023 1056 EST Inhaled Oxygen Concentration - - Weight - - Height - - Body Mass Index - - documented in this encounter Patient Instructions * Attachments The following attachments cannot be sent through Care Everywhere. * Conjunctivitis (Chadian) documented in this encounter Ordered Prescriptions Prescription Sig Dispensed Refills Start Date End Da te polymyxin B sulf-trimethoprim (POLYTRIM) ophthalmic solutionIndications:Acute bacterial conjunctivitis of both eyes Place 1 Drop into both eyes every 4 hours. 10 mL 06/15/2023 documented in this encounter Progress Notes * Jackeline Castañeda RN - 06/15/2023 1030 EST CC/HPI: reports bilateral eye irritation, now R eye much worse - symptoms began either Sat or Sun. C/o light sensitivity, pain, redness, watering intermittently. Denies discharge. Has tried warm compresses at night. Denies changes in vision. Nose slightly runny, but denies recent illness. Covid Screening: In the last 72 hours, has the patient had: New or unusual cough, shortness of breath, new nasal congestion, sore throat, fever, chills, body aches, or new loss of taste or smell without a reasonable alternative diagnosis*? (If yes, assign to ARC)- no In the past 10 days, has the patient had a positive Covid test OR a confirmed close Covid exposure (<6ft for > 15mins in 24hr period)? (if yes, assign to ARC, regardless of vaccination status)-no *may be determined by RN or in discussion with available provider (WOOD LATHER's and CCA's can defer to Charge Nurse to complete triage when appropriate) PCP: [facility] * Elvia Molina PA-C - 06/15/2023 1030 EST [facility] Chief Complaint(s): Eye Pain HPI: Patient reports bilateral eye discomfort, right more than the left, started few days ago, patient does have a history of contact lens use although is wearing glasses today, no other URI symptoms, reports some sensitivity to light, R eye started out with itching, left eye is not as bad although feels like it is becoming more irritated, has applied some warm compresses, patient is otherwise healthy ROS: Review of Systems Constitutional: Negative for fever. HENT: Negative for congestion, ear pain and sinus pain. Eyes: Positive for redness. Eyes feel irritated Objective: Examination: Vitals: BP (!) 152/75 Pulse 78 Temp 36.5 ??C (97.7 ??F) (Oral) Resp 18 SpO2 100% Physical Exam Vitals reviewed. Constitutional: Appearance: Normal appearance. HENT: Right Ear: Tympanic membrane normal. Left Ear: Tympanic membrane normal. Nose: Nose normal. Eyes: General: Left eye: Discharge present. Extraocular Movements: Extraocular movements intact. Pupils: Pupils are equal, round, and reactive to light. Comments: Right eye is moderately injected, very watery appearance when compared to the left although the left eye also has a slightly watery appearance, some scant purulent drainage in the medial canthus of the right eye Pulmonary: Effort: No respiratory distress. Neurological: Mental Status: She is alert. Lenses: With lenses Unable to Obtain Due to: Pain Right Eye: 20/40 Left Eye: 20/20 Both Eyes: 20/15 Visual acuity noted Procedures Assessment & Plan: 1. Acute bacterial conjunctivitis of both eyes - polymyxin B sulf-trimethoprim (POLYTRIM) ophthalmic solution; Place 1 Drop into both eyes every 4hours. Dispense: 10 mL; Refill: 0 Recommend no contact lens use for the next week, wash hands often, also obtain a new lens container, will need to start out with new contact lenses after 1 week, patient was given further informationand home care recommendations in her AVS An appropriate medical screening examination was performed. The patient was assessed prior to discharge and deemed stable for discharge. documented in this encounter Plan of Treatment Not on file documented as of this encounter Visit Diagnoses Diagnosis Acute bacterial conjunctivitis of both eyes- Primary documented in this encounter Historical Medications * This list may reflect changes made after this encounter. Medication Sig Dispensed Refills Start Date End Date chlorel/chloroph/D3/B2/FA /iron (CHLORELLA CAPS ORAL) Take by mouth. UNABLE TO FIND Super tumeric valACYclovir (VALTREX) 1 gram tablet TAKE 2 TABLETS BY MOUTH EVERY 12 HOURS. TAKE AT FIRST SIGHT OF ONSET OF COLD SORE 06/10/2023 added in this encounter Care Teams Screw Machine Hand Relationship Specialty Start Date End Date [facility] [address] [place] [address] PCP - General 06/15/23 Unknown, Provider, [address] [place] [address] 06/15/23 documented as of this encounter
--- OUTSIDE RECORDS SUMMARY | 2024-06-15 14:52 | XMS_ITS | Encounter Summary ---
Author Organization [facility] Address [address] [place] [address] Care Team Providers Care Carpet Inspector Finished Name Role Phone Unknown, Provider Primary Care Provider Jocelyn chaudhry Samantha [facility]- Primary Care Provider [phone] [phone] Unknown, Provider Unavailable Unavailable Encounter Details Date Type Department Care Team (Late st Contact Info) Description 06/06/2021 Lab Requisition [facility] Pathology & Laboratory Medicine - [address] [id number] Outr Resulting Lab, Provider Social History Tobacco [...] Procedure Name Priority Date/Time Associated Diagnosis Comments HIV 1/2 ANTIGEN AND ANTIBODY, 4TH GENERATION Routine 06/06/2021 8:20 EDT documented in this encounter Results * HIV 1/2 ANTIGEN AND ANTIBODY, 4TH GENERATION (06/06/2021 8:20 EDT) HIV 1 and 2 Antibody/p24 Antigen, 4th Generation Negative Negative 06/07/2021 10:02 EDT [facility] Comment: If acute HIV-1 infection is suspected in a high risk ??patient, submit plasma specimen for HIV-1 RNA quantitation test. Fourth Generation assay performed on the Siemens Beakeraur. Blood VENOUS BLOOD / Unknown 06/06/2021 8:20 EDT 06/06/2021 21:07 EDT Provider Outr Resulting Lab IMMUNOLOGY A ND SEROLOGY ORDERABLES [facility] [address] [place] [address] documented in this encounter Visit Diagnoses Not on filedocumented in this encounter Care Teams Carpet Inspector Finished Relationship Specialty Start Date End Date Unknown, ProviderMD PCP - General 01/28/18 06/14/23 [facility] [address] [place] [address] PCP - General 06/15/23 Unknown, MD Mariola 06/15/23 documented as of this encounter
--- OUTSIDE RECORDS SUMMARY | 2024-06-15 14:52 | XMS_ITS | Encounter Summary ---
Author Organization [facility] Address [address] [place] [address] Care Team Providers Care Repairer Name Role Phone Samantha [facility] Primary Care Provider [phone] [phone] Unknown, Provider MD Unavailable Unavailable Encounter Details Date Type Department Care Team (Late st Contact Info) Description 01/07/2024 Lab Requisition [facility] Pathology & Laboratory Medicine - [address] [id number] Outr Resulting Lab, Provider Social History Tobacco [...] 1/2 ANTIGEN AND ANTIBODY, 4TH GENERATION Routine 01/07/2024 10:36 EDT documented in this encounter Results * HIV 1/2 ANTIGEN AND ANTIBODY, 4TH GENERATION (01/07/2024 10:36 EDT) HIV 1 and 2 Antibody/p24 Antigen, 4th Generation Negative Negative 01/07/2024 23:43 EDT [facility] Comment:If acute HIV-1 infec tion is suspected in a high risk patient, submit plasma specimen for HIV-1 RNA quantitation test. Blood VENOUS BLOOD / Unknown 01/07/2024 10:36 EDT 01/07/2024 21:48 EDT Narrative [facility] - 01/07/2024 23:43 EDT Fourth Generation assay performed on the Siemens Nexgenceaur XPT. Provider Outr Resulting Lab IMMUNOLOGY A ND SEROLOGY ORDERABLES [facility] [address] [place] [address] documented in this encounter Visit Diagnoses Not on filedocumented in this encounter Care Teams Repairer Relationship Specialty Start Date End [facility] [address] [place] [address] PCP - General 06/15/23 Unknown, Provider, [address] [place] [address] 06/15/23 documented as of this encounter
--- OUTSIDE RECORDS SUMMARY | 2024-06-15 14:52 | XMS_ITS | Encounter Summary ---
Author Organization [facility] Address [address] [place] [address] Care Team Providers Care Gunner'S Mate Name Role Phone Unknown, Provider Primary Care Provider Jocelyn chaudhry Samantha [facility] [place] [place]- Primary Care Provider [phone] [phone] Unknown, Provider Unavailable Unavailable Encounter Details Date Type Department Care Team (Late st Contact Info) Description 11/14/2020 Lab Requisition [facility] Pathology & Laboratory Medicine - [address] [id number] Outr Resulting Lab, Provider Social History Tobacco [...] Procedure Name Priority Date/Time Associated Diagnosis Comments CHLAMYDIA/N. GONORRHOEAE AMPLIFIED NUCLEIC ACID Routine 11/14/2020 9:25 EDT documented in this encounter Results * CHLAMYDIA/N. GONORRHOEAE AMPLIFIED RNA (11/14/2020 9:25 EDT) Neisseria gonorrhoeae Result Negative Negative 11/15/2020 13:56 EDT [facility] Chlamydia trachomatis Result Negative Negative 11/15/2020 13:56 EDT [facility] Swab ENTIRE VAGINA / Unknown 11/14/2020 9:25 EDT 11/14/2020 21:43 EDT Provider Outr Resulting Lab MICROBIOLOGY - GENERAL ORDERABLES [facility] [address] [place] [address] documented in this encounter Visit Diagnoses Not on filedocumented in this encounter Care Teams Gunner'S Mate Relationship Specialty Start Date End Date Unknown, ProviderMD PCP - General 01/28/18 06/14/23 [facility] [address] [place] [address] PCP - General 06/15/23 Unknown, ProviderMD 06/15/23 documented as of this encounter
--- OUTSIDE RECORDS SUMMARY | 2024-06-15 14:52 | XMS_ITS | Encounter Summary ---
Author Organization [facility] Address [address] [place] [address] Care Team Providers Care Class A Lineman Name Role Phone Unknown, Provider Primary Care Provider Jocelyn Singh [facility]- Primary Care Provider [phone] [phone] Unknown, Provider Unavailable Unavailable Encounter Details Date Type Department Care Team (Late st Contact Info) Description 06/07/2021 Lab Requisition [facility] Pathology & Laboratory Medicine - [address] [address] Darlene Alves, RETAIL CUSTOMER SERVICE REPRESENTATIVE [address] [place] [id number] Encounter for other general examination Social History Tobacco Use Types Packs/Day Years Used Date Smoking Tobacco: Never Assessed Sex and Gender Information Value Date Recorded Sex Assigned at Not on file Gender Identity Female 06/15/2023 10:28 EST Sexual Orientation Not on file documented as of this encounter Plan of Treatment Not on file documented as of this encounter Procedures Procedure Name Priority Date/Time Associated Diagnosis Comments PAP TEST Today 06/06/2021 8:30 EDT Encounter for other general examination documented in this encounter Results * PAP TEST (06/06/2021 8:30 EDT) Specimens A. Cervix and/or Endocervix , ThinPrep Imaging System with Manual Evaluation 06/10/2021 12:42 EDT [facility] Specimen Adequacy Satisfactory for Evaluation - transformation zone component present 06/10/2021 12:42 EDT [facility] General Categorization Negative for intraepithelial lesion or malignancy 06/10/2021 12:42 EDT [facility] Attestation . 06/10/2021 12:42 EDT [facility] at 1242 Clinical History See below 06/10/20 12:42 EDT [facility] Performing Lab [facility] 06/10/2021 12:42 EDT [facility] Scanned Images 06/10/2021 12:42 EDT [facility] Papanicolaou smear specimen (specimen) CERVIX UTERI STRUCTURE / Unknown 06/06/2021 8:30 EDT 06/07/2021 11:44 EDT Darlene Alves RETAIL CUSTOMER SERVICE REPRESENTATIVE PATHOLOGY ORDERA BLES [facility] [address] [place] [address] documented in this encounter Visit Diagnoses Diagnosis Encounter for other general examination documented in this encounter Care Teams Class A Lineman Relationship Specialty Start Date End Date Unknown, ProviderMD PCP - General 01/28/18 06/14/23 [facility] [address] [place] [address] PCP - General 06/15/23 Unknown, MD Mariola 06/15/23 documented as of this encounter
--- OUTSIDE RECORDS SUMMARY | 2024-06-15 14:52 | XMS_ITS | Clinical Summary ---
Author Organization [facility] Address [address] [place] [address] Care Team Providers Care Feed Handler Name Role Phone Samantha [facility] Primary Care Provider +1 [phone] Unknown, Provider MD Unavailable Unavailable Allergies No known active allergies Medications Medication Sig Dispensed Refills Start Date End Date Status valACYclovir (VALTREX) 1 gram tablet TAKE 2 TABLETS BY MOUTH EVERY 12 HOURS. TAKE AT FIRST SIGHT OF ONSET OF COLD SORE 06/10/2023 Active UNABLE TO FIND Super tumeric Active chlorel/chloroph/D3/B2/F A/iron (CHLORELLA CAPS ORAL) Take by mouth. Active polymyxin B sulf-trimethoprim (POLYTRIM) ophthalmic solutionIndications:Acut e bacterial conjunctivitis of both eyes Place 1 Drop into both eyes every 4 hours. 10 mL 06/15/2023 Active Encounters Date Type Department Care Team Description 03/31/2024 Lab Requisition [facility] Pathology & Laboratory Medicine - [address] [address] Outr Resulting Lab, Provider from Last 3 Months Social History Tobacco Use Types Packs/Day Years Used Date Smoking Tobacco: Never Assessed Sex and Gender Information Value Date Recorded Sex Assigned at Not on file Gender Identity Female 06/15/2023 10:28 EST Sexual Orientation Not on file Last Filed Vital Signs Vital Sign Reading Time Taken Comments Blood Pressure 152/75 06/15/2023 1056 EST Pulse 78 06/15/2023 1056 EST Temperature 36.5 ??C (97.7 ??F) 06/15/2023 1056 EST Respiratory Rate 18 06/15/2023 1056 EST Oxygen Saturation 100% 06/15/2023 1056 EST Inhaled Oxygen Concentration - - Weight - - Height - - Body Mass Index - - Plan of Treatment Health Maintenance Due Date Last Done Comments Hepatitis B Vaccine (1 of 3 - 19+ 3-dose series) 08/08 COVID-19 Vaccine (2022-24 season) 2023 Hepatitis C Screen Completed 01/07/2024 Procedures Procedure Name Priority Date/Time Associated Diagnosis Comments VAGINAL CTGC AND VAGINITIS/VAGINOSIS MOLECULAR DETECTION Routine 03/31/2024 16:29 EDT HEPATITIS C AB W REFLEX TO HCV RNA BY PCR Routine 01/07/2024 10:36 EDT from Last 3 Months or Most Recently Relevant to Health Maintenance Results * VAGINAL CTGC AND VAGINITIS/VAGINOSIS MOLECULAR DETECTION (03/31/2024 16:29 EDT) Stephanie glabrata Negative Negative 04/02/2024 16:49 EDT [facility] Trichomonas Vaginalis Negative Negative 04/02/2024 16:49 EDT [facility] BV (Bacterial vaginosis) Negative Negative 04/02/2024 16:49 EDT [facility] Neisseria gonorrhoeae Result Negative Negative 04/02/2024 16:49 EDT [facility] Chlamydia trachomatis Result Negative Negative 04/02/2024 16:49 EDT [facility] Stephanie Species Negative Negative 16:49 EDT [facility] Swab VAGINAL STRUCTURE / Unknown 03/31/2024 16:29 EDT 04/01/2024 22:08 EDT Provider Outr Resulting Lab MICROBIOLOGY - GENERAL ORDERABLES [facility] [address] [place] [address] * HEPATITIS C AB W REFLEX TO HCV RNA BY PCR (01/07/2024 10:36 EDT) Hep C Antibody Negative Negative 01/07/2024 23:28 EDT [facility] Blood VENOUS BLOOD / Unknown 01/07/2024 10:36 EDT 01/07/2024 21:48 EDT Provider Outr Resulting Lab CHEMISTRY & BLOOD GAS ORDERABLES [facility] [address] [place] [address] from Last 3 Months or Most Recently Relevant to Health Maintenance Care Teams Feed Handler Relationship Specialty Start Date End Date [facility] [address] [place] [address] PCP - General 06/15/23 Unknown, Provider, [place] [address] 06/15/23
--- OUTSIDE RECORDS SUMMARY | 2024-06-15 14:52 | XMS_ITS | Encounter Summary ---
Author Organization [facility] Address [address] [place] [address] Care Team Providers Care Manufacturing Quality Technician Name Role Phone Samantha [facility] Primary Care Provider [phone] -[phone] Unknown, Provider MD Unavailable Unavailable Encounter Details Date Type Department Care Team (Late st Contact Info) Description 01/07/2024 Lab Requisition [facility] Pathology & Laboratory Medicine - [address] [phone] Outr Resulting Lab, Provider Social History Tobacco [...] Procedure Name Priority Date/Time Associated Diagnosis Comments SYPHILIS SEROLOGY Routine 01/07/2024 10: 36 EDT HEPATITIS C AB W REFLEX TO HCV RNA BY PCR Routine 01/07/2024 10:36 EDT documented in this encounter Results * SYPHILIS SEROLOGY (01/07/2024 10:36 EDT) Syphilis Serology Negative Negative 01/08/2024 12:01 EDT [facility] Blood VENOUS BLOOD / Unknown 01/07/2024 10:36 EDT 01/07/2024 21:48 EDT Provider Outr Resulting Lab IMMUNOLOGY A ND SEROLOGY ORDERABLES [facility] [address] [place] [address] * HEPATITIS C AB W REFLEX TO HCV RNA BY PCR (01/07/2024 10:36 EDT) Hep C Antibody Negative Negative 01/07/2024 23:28 EDT [facility] Blood VENOUS BLOOD / Unknown 01/07/2024 10:36 EDT 01/07/2024 21:48 EDT Provider Outr Resulting Lab CHEMISTRY & BLOOD GAS ORDERABLES Performing Organization Address [facility] Co de Phone Number [facility] [address] [place], [place] [phone] documented in this encounter Visit Diagnoses Not on filedocumented in this encounter Care Teams Manufacturing Quality Technician Relationship Specialty Start Date End [facility] [address] [place] [address] PCP - General 06/15/23 Unknown, Provider, [address] [place] [address] 06/15/23 documented as of this encounter
--- OUTSIDE RECORDS SUMMARY | 2024-06-15 14:52 | XMS_ITS | Continuity of Care Document ---
Author Organization [facility] Address [address] [place] [address] Care Team Providers Care Spot Billing Clerk Name Role Phone Outside, Provider Primary Care Physician Encounter NCTY_MS Date(s): 03/31/24 - 03/31/24 [facility] [address] [place] [address] Discharge Disposition: Home or Self Care Attending Physician: Dominique Taylor PA-C Admitting Physician: Dominique Taylor PA-C Referring Physician: Dominique Taylor PA-C Assessment and Plan Diagnostic Tests Pending * Vaginal CTGC and Molecular Vaginitis Detection, [facility] 03/31/24 Patient Care team information Care Team Personnel Name: Outside, Provider Position: No Access Member Role: Informed Provider Insurance Providers Guarantor name: CHAU BARROW Health Plan Information #: 1 Payer: [employer] [facility] MEDICAID Member Number: [id number] Policy Number: NA Health Plan Information #: 2 Payer: [employer] Member Number: [id number] Policy Number: NA
--- OUTSIDE RECORDS SUMMARY | 2024-06-15 14:52 | XMS_ITS | Encounter Summary ---
Author Organization [facility] Address [address] [place] [address] Care Team Providers Care Wholesale Diamond Broker Name Role Phone Unknown, Provider Primary Care Provider Jocelyn chaudhry Samantha [facility]- Primary Care Provider [phone] -[phone] Unknown, Provider Unavailable Unavailable Encounter Details Date Type Department Care Team (Late st Contact Info) Description 06/06/2021 Lab Requisition [facility] Pathology & Laboratory Medicine - [address] [phone] Outr Resulting Lab, Provider Social History Tobacco [...] Comments CHLAMYDIA/N. GONORRHOEAE AMPLIFIED NUCLEIC ACID Routine 06/06/2021 8:20 EDT documented in this encounter Results * CHLAMYDIA/N. GONORRHOEAE AMPLIFIED RNA (06/06/2021 8:20 EDT) Neisseria gonorrhoeae Result Negative Negative 06/07/2021 15:56 EDT [facility] Chlamydia trachomatis Result Negative Negative 06/07/2021 15:56 EDT [facility] Urine URINE / Unknown 06/06/2021 8 :20 EDT 06/06/2021 22:38 EDT Narrative [facility] - 06/07/2021 15:56 EDT A first catch urine specimen is acceptable for detection of Gonorrhea and Chlamydia, but might detect up to 10% fewer infections when compared with vaginal and endocervical swab samples. Provider Outr Resulting Lab MICROBIOLOGY - GENERAL ORDERABLES [facility] [address] [place] [address] documented in this encounter Visit Diagnoses Not on filedocumented in this encounter Care Teams Wholesale Diamond Broker Relationship Specialty Start Date End Date Unknown, Provider, PCP - General 01/28/18 06/14/23 [facility] [address] [place] [address] PCP - General 06/15/23 Unknown, ProviderMD 06/15/23 documented as of this encounter
--- OUTSIDE RECORDS SUMMARY | 2024-06-15 14:52 | XMS_ITS | Referral Summary ---
Author Organization [facility] Address [address] [place] [address] Care Team Providers Care [employer] Name Role Phone Samantha [facility] Primary Care Provider [phone] Unknown, Provider MD Unavailable Unavailable Encounters Date Type Department Care Team Description 03/31/2024 Lab Requisition [facility] Pathology & Laboratory Medicine - [address] [address] Outr Resulting Lab, Provider from Last 3 Months Allergies No known active allergies Medications Medication [...] every 4 hours. 10 mL 06/15/2023 Active Social History Tobacco Use Types Packs/Day Years [...] Mass Index - - Plan of Treatment Not on file Procedures Procedure Name Priority Date/Time Associated Diagnosis Comments VAGINAL CTGC AND VAGINITIS/VAGINOSIS MOLECULAR DETECTION Routine 03/31/2024 16:29 EDT HEPATITIS C AB W REFLEX TO HCV RNA BY PCR Routine 01/07/2024 10:36 EDT from Last 3 Months or Most Recently Relevant to Health Maintenance Results * VAGINAL CTGC AND VAGINITIS/VAGINOSIS MOLECULAR DETECTION (03/31/2024 16:29 EDT) Stephanie glabrata Negative Negative 04/02/2024 16:[address] [facility] Trichomonas Vaginalis Negative Negative 04/02/2024 16:[address] [facility] BV (Bacterial vaginosis) Negative Negative 04/02/2024 16:[address] [facility] Neisseria gonorrhoeae Result Negative Negative 04/02/2024 16:[address] [facility] Chlamydia trachomatis Result Negative Negative 04/02/2024 16:[address] [facility] Stephanie Species Negative Negative 16:[address] [facility] Swab VAGINAL STRUCTURE / Unknown 03/31/2024 16:29 EDT 04/01/2024 22:08 EDT Provider Outr Resulting Lab MICROBIOLOGY - GENERAL ORDERABLES Performing Organization Address City/[facility] Co de Phone Number [facility] [address] [place] [phone] * HEPATITIS C AB W REFLEX TO HCV RNA BY PCR (01/07/2024 10:36 EDT) Hep C Antibody Negative Negative 01/07/2024 23:[address] [facility] Blood VENOUS BLOOD / Unknown 01/07/2024 10:36 EDT 01/07/2024 21:48 EDT Provider Outr Resulting Lab CHEMISTRY & BLOOD GAS ORDERABLES [facility] [address] [place] [address] from Last 3 Months or Most Recently Relevant to Health Maintenance Care Teams [employer] Relationship Specialty Start Date End Date [facility] [address] [place] [address] PCP - General 06/15/23 Unknown, Provider, [address] [place] [address] 06/15/23
--- OUTSIDE RECORDS SUMMARY | 2024-06-15 14:52 | XMS_ITS | Encounter Summary ---
Author Organization [facility] Address [address] [place] [address] Care Team Providers Care Slide Maker Name Role Phone Samantha [facility] Primary Care Provider [phone] Unknown, Provider MD Unavailable Unavailable Encounter Details Date Type Department Care Team (Late st Contact Info) Description 01/07/2024 Lab Requisition [facility] Pathology & Laboratory Medicine - [address] [id number] Outr Resulting Lab, Provider Social History Tobacco [...] Comments CHLAMYDIA/N. GONORRHOEAE AMPLIFIED NUCLEIC ACID Routine 01/07/2024 10:36 EDT documented in this encounter Results * CHLAMYDIA/N. GONORRHOEAE AMPLIFIED RNA (01/07/2024 10:36 EDT) Neisseria gonorrhoeae Result Negative Negative 01/08/2024 14:59 EDT [facility] Chlamydia trachomatis Result Negative Negative 01/08/2024 14:59 EDT [facility] Swab VAGINAL STRUCTURE / Unknown 01/07/2024 10:36 EDT 01/07/2024 22:02 EDT Provider Outr Resulting Lab MICROBIOLOGY - GENERAL ORDERABLES Performing Organization Address [facility]/State/ZIP Co de Phone Number [facility] [address] [place] [address] documented in this encounter Visit Diagnoses Not on filedocumented in this encounter Care Teams Slide Maker Relationship Specialty Start Date End Date [facility] [address] [place], [place] [address] PCP - General 06/15/23 Unknown, Provider, [address] [place] [address] 06/15/23 documented as of this encounter
== END 2024-06-15 14:49 | disposition home or self-care (01) ==
LOC: NCHCN 14:48
PROVIDERS: PCP Nurse Practitioner Family; Visit Provider Family Medicine
DX: Z11.51 Encounter for screening for human papillomavirus (HPV) (principal); Z01.419 Encounter for gynecological examination (general) (routine) without abnormal findings
CPT/HCPCS: 88142; 87624

== ENCOUNTER 2025-05-04 10:00 | Outpatient (REF) | payer MEDICAID, SELFPAY ==
[2025-05-04 23:01] LABS: Hepatitis C Ab w Rflx HCV PCR Negative (Negative)
[2025-05-04 23:02] LABS: HIV-1/2 Ag & Ab Screen Negative (Negative)
[2025-05-05 11:17] LABS: Syphilis Serology (RPR) Negative (Negative)
[2025-05-05 17:43] LABS: Bacterial Vaginosis (BV) Positive (Negative); Candida glabrata Negative (Negative); Candida species group Negative (Negative); Chlamydia Result Negative (Negative); GC Result Negative (Negative)
== END 2025-05-04 10:01 | disposition home or self-care (01) ==
LOC: NCHCN 10:00
PROVIDERS: PCP Nurse Practitioner Family; Visit Provider Family Medicine
DX: Z11.3 Encounter for screening for infections with a predominantly sexual mode of transmission (principal)
CPT/HCPCS: 81513; 86803; 87389; 87481; 87491; 87591; 87661; 86592

== ENCOUNTER 2025-08-01 18:06 | Outpatient (REF) | payer MEDICAID, SELFPAY ==
[2025-08-04 13:49] LABS: Chlamydia Result Negative (Negative); GC Result Negative (Negative)
== END 2025-08-01 18:07 | disposition home or self-care (01) ==
LOC: LBN 18:06
PROVIDERS: PCP Nurse Practitioner Family; Visit Provider Nurse Practitioner Family
DX: N76.0 Acute vaginitis (principal); Z11.3 Encounter for screening for infections with a predominantly sexual mode of transmission
CPT/HCPCS: 87491; 87591; 87480; 87510; 87660

== ENCOUNTER 2025-08-05 23:40 | Outpatient (REF) | payer MEDICAID, SELFPAY | END 2025-08-05 23:41 | disposition home or self-care (01) | LOC: LBN 23:40 | PROVIDERS: PCP Nurse Practitioner Family; Visit Provider Physician Assistant Medical | DX: N89.8 Other specified noninflammatory disorders of vagina (principal) | CPT/HCPCS: 87480; 87510; 87660 ==